=== PATIENT | female | born 1930 | race Caucasian/White ===

== ENCOUNTER 2017-09-15 16:55 | Inpatient (IN) | payer OTHER, MEDICAID ==
[~2017-09-15] VITALS: Ht 149.9 cm; Wt 44.5 kg
[~2017-09-15 16:55] MED LIST: ACETAMINOPHEN650 M5 PO; BACTRIM DS TAB1 EACH PO; CALCIUM 500 +1 EAC5 PO; CEFPODOXIME PR200 M1 PO; CHLORTHALIDONE25 MG PO; CIPRO250 M2 PO; COLACE100 MG PO; COREG3.125 MG PO; ENAL0; EXCEDRIN CAPLE1 EACH PO; HYDRALAZINE 10M10 MG PO; MULTIVITAMINS PO; NORVASC5 MG PO; PERCOCET 5-3251 EACH PO; PHENAZOPYRIDIN200 M2 PO; PYRIDIUM200 MG PO; SIMVASTATIN20 MG PO; TRAMADOL 50 MG50 MG PO; VASOTEC20 MG PO; ZOCOR40 MG PO; ZOFRAN4 MG PO
[2017-09-15] MEDS ORDERED: BACID CAPLET1 EACH PO (17:03)
[2017-09-15] MEDS ORDERED: VITAMINC500 PO (17:03)
[2017-09-15] MEDS ORDERED: CALMOSEPTINE O3.5 GM TOP (17:04)
[2017-09-15] MEDS ORDERED: CEFPODOXIME PR200 M1 PO (17:04)
[2017-09-15] MEDS ORDERED: COZAAR 25 MG TA25 M2 PO (17:04)
[2017-09-15] MEDS ORDERED: ENSURE ACTIVE237 ML PO (17:05)
[2017-09-15] MEDS ORDERED: DITROPAN XL5 M1 PO (17:05)
[2017-09-15] MEDS ORDERED: FLORASTOR250 MG PO (17:06)
[2017-09-15] MEDS ORDERED: HIPREX1 GM PO (17:06)
[2017-09-15] MEDS ORDERED: PRILOSEC 20 MG20 MG PO (17:06)
[2017-09-15] MEDS ORDERED: SENNA8.6 MG PO (17:06)
[2017-09-15] MEDS ORDERED: ORAZINC220 MG PO (17:07)
[2017-09-15 17:54] LABS: HEMATOCRIT 39.7 % (37.0-47.0); HEMOGLOBIN 13.1 gm/dL (12.0-15.0); MCH 27.9 pg (26.0-34.0); MCV 84.6 fL (80.0-100.0); MPV 8.7 fl. (7.2-11.1); NUCLEATED RBCS 0 /100WBC; PLATELET COUNT* 311 thou/uL (150-400); RBC 4.69 mil/uL (4.20-5.00); RDW-CV 14.1 % (10.5-14.5); WBC 20.3 thou/uL (4.0-11.0)
[2017-09-15 18:02] LABS: CALCIUM 8.3 mg/dL (8.5-10.1); CREATININE 2.5 mg/dL (0.6-1.3); POTASSIUM 3.5 mmol/L (3.5-5.1)
[2017-09-15 18:03] LABS: ALBUMIN 2.5 g/dL (3.4-5.0); MAGNESIUM 3.1 mg/dL (1.8-2.4); TOTAL BILIRUBIN 0.3 mg/dL (<0.1-1.0)
[2017-09-15 19:25] LABS: ABSOLUTE MONOCYTES 0.2 thou/uL (0.0-1.2); ABSOLUTE NEUTROPHILS 18.1 thou/uL (1.6-8.1)
[2017-09-15 19:26] LABS: PLATELET ESTIMATE ADEQUATE
[2017-09-15 20:27] VITALS: BP 123/72
[2017-09-15 21:30] VITALS: BP 146/76
[2017-09-15] MEDS ORDERED: DAILY MULTIPLE1 EACH PO (21:37)
[2017-09-16 04:52] LABS: CALCIUM 8.6 mg/dL (8.5-10.1); CREATININE 1.9 mg/dL (0.6-1.3); POTASSIUM 3.3 mmol/L (3.5-5.1)
[2017-09-16 04:54] LABS: HEMOGLOBIN 11.5 gm/dL (12.0-15.0); MCH 27.9 pg (26.0-34.0); MCHC 32.8 g/dL (28.0-37.0); MPV 8.8 fl. (7.2-11.1); RBC 4.12 mil/uL (4.20-5.00); RDW-CV 14.2 % (10.5-14.5)
[2017-09-16 04:55] LABS: ALBUMIN 1.9 g/dL (3.4-5.0); MAGNESIUM 2.8 mg/dL (1.8-2.4); TOTAL BILIRUBIN 0.3 mg/dL (<0.1-1.0); TOTAL PROTEIN 5.4 g/dL (6.4-8.2)
--- NOTE | 2017-09-16 05:22 | NUR ---
ASSESSMENT COMPLETE. PT ADMITTED WITH HYPERMAG WITH RENAL FAILURE. PT GIVEN CALCIUM GLUCONATE IN ED, ROCEPHIN FOR UTI. UROLOGY WAS CONSULTED FOR SUPRAPUBIC CATH LEAKING. CATH REPLACED TONIGHT AND STILL LEAKING AT THIS TIME. PT INCONT OF STOOL DURING THE NIGHT. PT HAS IV FLUIDS INFUSING. PT IS ALERT AND ORIENTED X4. PT DENIES PAIN. PT DENIES N/V. PT TAKES MEDS ONE AT A TIME WITH WATER. PT HAS WOUNDS TO SACRUM, PICS TAKEN AND IN CHART. PT IS Q2 TURN. SEE ASSESSMENT AND VITALS FOR OTHER DETAILS. CALL LIGHT WITHIN REACH, WILL CONTINUE PLAN OF CARE
[2017-09-16 08:15] VITALS: BP 108/57
[2017-09-16 10:01] LABS: URINE BILIRUBIN NEGATIVE (Negative); URINE BLOOD 3+ (Negative); URINE CLARITY CLEAR; URINE COLOR YELLOW; URINE GLUCOSE-RANDOM NEGATIVE (Negative); URINE KETONES NEGATIVE (Negative); URINE LEUKOCYTES-REFLEX NEGATIVE (Negative); URINE NITRITE-REFLEX NEGATIVE (Negative); URINE PROTEIN NEGATIVE (Negative); URINE UROBILINOGEN 0.2 E.U./dl (0.2-1.0)
--- NOTE | 2017-09-16 10:04 | EKG ---
[place] [address] ELECTROCARDIOGRAM REPORT Name: NORIS GRAJEDA I Room: [address] ADM IN .R.#: [id number] Admission: 09/15/17 Attend Phys: Xavier Baker MD Discharge: Date of : [birth year] Report #: [id number] THIS REPORT FOR: //name// [facility] ED Test Date: 2017-09-15 Test Time: 17:34:55 Pat Name: NORIS GRAJEDA Department: Room: [facility] Gender: F Sped Teacher: [employer] : 1930 Requested By: Cathy Franco Order Number: [id number] MD: Jacob Rosario Measurements Intervals [place] Rate: 91 P: -39 [place]: 176 QRS: -60 QRSD: 144 T: 107 QT: 400 QTc: 493 Interpretive Statements Sinus tachycardia Supraventricular bigeminy left axis Left bundle branch block Artifact in lead(s) I,II,III,aVR,aVF Compared to ECG 10/27/2014 15:17:42 Left bundle-branch block now present Sinus rhythm no longer present Electronically Signed On 09-16-2017 10:04:19 CDT by Jacob Rosario [email or web address] <ELECTRONICALLY SIGNED> By: Jacob Rosario MD, FAC 09/16/17 1004 1734 1734 Jacob Rosario MD, [facility] /EPI
[2017-09-16 10:07] LABS: URINE POTASSIUM-RANDOM 9.1 mmol/L
[2017-09-16 10:16] LABS: BACTERIA-REFLEX 1-9 Few /HPF (None Seen); CASTS None Seen /LPF (None Seen); CRYSTALS None Seen /LPF (None Seen); MUCUS 0-3 Light strn/LPF (None Seen); SQUAMOUS 4-10 Moderate /LPF (0-3); URINE RBC 3-10 Few /HPF (0-2); URINE WBC-REFLEX 0-5 Rare /HPF (0-5)
--- NOTE | 2017-09-16 13:24 | NUR ---
MET BRIEFLY WITH PT AND SPOKE WITH SON/KENTON OVER THE PHONE. PT IS LTC RESIDENT AT [facility]. PLAN IS FOR HER TO RETURN THERE [place]. CALL TO [facility], THEY WILL ACCEPT PT BACK [place]. ANSWERED KENTON'S QUESTIONS AND UPDATED HIM ON POC. WILL FOLLOW
[2017-09-16 16:11] VITALS: BP 115/59
--- NOTE | 2017-09-16 18:16 | NUR ---
PATIENT RESTING IN BED. PATIENT WAS UP TO CHAIR THIS AFTERNOON WITH MAX ASSIST. PATIENT HAS BEEN REPOSITIONED WHILE IN BED. PATIENT DENIES ANY PAIN. PATIENT HAS SUPRAPUBIC CATHETER WHICH IS STILL LEAKING A LITTLE, LEVSIN GIVEN. PATIENT HAD KIDNEY ULTRASOUND THIS AFTERNOON WITHOUT INCIDENT. PATIENT DENIES ANY NEEDS AT THIS TIME. CALL LIGHT WITHIN REACH. WILL CONTINUE TO MONITOR.
[2017-09-16 23:27] VITALS: BP 118/60
[2017-09-17 04:41] LABS: HEMATOCRIT 34.6 % (37.0-47.0); HEMOGLOBIN 11.3 gm/dL (12.0-15.0); MCH 27.9 pg (26.0-34.0); MCHC 32.7 g/dL (28.0-37.0); MCV 85.1 fL (80.0-100.0); MPV 8.6 fl. (7.2-11.1); RBC 4.06 mil/uL (4.20-5.00); RDW-CV 13.8 % (10.5-14.5); WBC 13.6 thou/uL (4.0-11.0)
[2017-09-17 04:50] LABS: CALCIUM 8.3 mg/dL (8.5-10.1); CREATININE 1.3 mg/dL (0.6-1.3); MAGNESIUM 2.3 mg/dL (1.8-2.4); POTASSIUM 3.2 mmol/L (3.5-5.1)
--- NOTE | 2017-09-17 05:08 | NUR ---
ASSESSMENT COMPLETE. PT SLEPT PART OF THE NIGHT. PT IS ALERT AND ORIENTED X4. PT DENIES PAIN. PT IS ON ROOM AIR WITH [place] SATS, DENIES SOA. PT DID NOT HAVE AND BM DURING THE NIGHT, NEED SAMPLE FOR CDIFF. SUPRAPUBIC CATH LEAKING A LITTLE BIT DURING THE NIGHT, LESS THAN THURSDAY NIGHT. PT HAS IV IN RIGHT HAND, SALINE LOCKED. PT Q2 TURN FOR SKIN INTEGRITY. PT HAS NO OTHER CONCERNS AT THIS TIME. SEE ASSESSMENT AND VITALS FOR OTHER DETAILS. CALL LIGHT WITHIN REACH, WILL CONTINUE PLAN OF CARE
[2017-09-17 08:45] VITALS: BP 111/60
--- NOTE | 2017-09-17 12:22 | NUR ---
WOUND NURSE: PATIENT SEEN TO ADDRESS SUPERFICIAL BREAKDOWN ON BILATERAL BUTTOCKS. AFFECTED AREAS PRESENT RUPTURED BULLAE WITH PEELING SKIN. PARTIAL THICKNESS TISSUE LOSS AND SCANT SEROUS DRAINAGE AT THIS TIME. PLAN IS TO CLEANSE WITH SOAP AND WATER, THEN APPLY EXUDERM TO EACH LESION AND SECURE IN PLACE USING SURESITE TRANSPARENT DRESSING. STAFF NURSE MELL INFORMED AND INSTRUCTED.
[2017-09-17 16:19] VITALS: BP 115/69
[2017-09-17 18:22] LABS: ABSOLUTE BASOPHILS 0.1 thou/uL (0.0-0.2); ABSOLUTE EOSINOPHILS 0.1 thou/uL (0.0-0.7); ABSOLUTE LYMPHOCYTES 1.8 thou/uL (0.8-5.3); ABSOLUTE MONOCYTES 0.5 thou/uL (0.0-1.2); ABSOLUTE NEUTROPHILS 12.5 thou/uL (1.6-8.1); BASOPHILS 0.4 %; EOSINOPHILS 0.7 %; HEMATOCRIT 36.2 % (37.0-47.0); LYMPHOCYTES 11.8 %; MCH 28.1 pg (26.0-34.0); MONOCYTES 3.5 %; MPV 8.1 fl. (7.2-11.1); NUCLEATED RBCS 0 /100WBC; PLATELET COUNT* 349 thou/uL (150-400); POLYS 83.6 %; RBC 4.26 mil/uL (4.20-5.00); RDW-CV 14.1 % (10.5-14.5)
--- NOTE | 2017-09-17 18:22 | NUR ---
PATIENT RESTING IN BED. PATIENT HAS BREAKDOWN TO BILATERAL BUTTOCKS, DRESSED PER WOUND CARE INSTRUCTION. PATIENT DENIES ANY PAIN. PATIENT'S SUBRAPUBIC CATHETER STILL LEAKING BUT HAS SLOWED. PATIENT IS POSITIVE FOR CDIFF, DR ROONEY NOTIFIED AND ORDERS RECIEVED. PATIENT HAS BEEN INCONTINENT OF BOWELS MULTIPLE TIMES TODAY. PATIENT REPOSITIONED WHILE IN BED, FEET ELEVATED ON PILLOWS. PATIENT DENIES ANY NEEDS AT THIS TIME. CALL LIGHT WITHIN REACH. WILL CONTINUE TO MONITOR.
[2017-09-17 20:13] LABS: URINE BILIRUBIN NEGATIVE (Negative); URINE BLOOD 2+ (Negative); URINE CLARITY CLEAR; URINE COLOR STRAW; URINE GLUCOSE-RANDOM NEGATIVE (Negative); URINE KETONES NEGATIVE (Negative); URINE LEUKOCYTES-REFLEX TRACE (Negative); URINE NITRITE-REFLEX NEGATIVE (Negative); URINE PROTEIN TRACE (Negative); URINE UROBILINOGEN 0.2 E.U./dl (0.2-1.0)
[2017-09-17 20:24] LABS: SQUAMOUS 4-10 Moderate /LPF (0-3)
[2017-09-17 20:25] LABS: BACTERIA-REFLEX 1-9 Few /HPF (None Seen); CRYSTALS None Seen /LPF (None Seen); HYALINE CASTS 0-3 Few /LPF (None Seen); MUCUS 0-3 Light strn/LPF (None Seen); URINE RBC 3-10 Few /HPF (0-2); URINE WBC-REFLEX 0-5 Rare /HPF (0-5)
[2017-09-17 20:30] VITALS: BP 119/64
[2017-09-18 04:38] LABS: HEMATOCRIT 35.2 % (37.0-47.0); HEMOGLOBIN 11.4 gm/dL (12.0-15.0); MCH 27.7 pg (26.0-34.0); MCHC 32.4 g/dL (28.0-37.0); MCV 85.5 fL (80.0-100.0); MPV 8.6 fl. (7.2-11.1); RBC 4.12 mil/uL (4.20-5.00); RDW-CV 14.2 % (10.5-14.5)
--- NOTE | 2017-09-18 04:53 | NUR ---
PT UP MOST OF THE EVENING, TURNED FREQUENTLY PER PATIENT REQUEST, SEVERAL INCONTINENT STOOLS THIS SHIFT, IV ANTIBIOTIC GIVEN, SUPRAPUBIC CATH, PRN SLEEPING MEDICATIONS GIVEN AND SLEPT LATER IN THE NIGHT, CALL LIGHT IN REACH, BED ALARM ON FOR SAFETY, WILL CONTINUE TO MONITOR
[2017-09-18 04:57] LABS: CALCIUM 8.3 mg/dL (8.5-10.1); CREATININE 1.2 mg/dL (0.6-1.3); POTASSIUM 5.2 mmol/L (3.5-5.1)
[2017-09-18 08:50] VITALS: BP 116/71
--- NOTE | 2017-09-18 10:41 | CON ---
[address] [address] CONSULTATION Name: NORIS GRAJEDA I Room: [address] IN [facility]#: [id number] Admission: 09/15/17 Attend Phys: Xavier Baker MD Discharge: Date of : [birth year] Report #: [id number] THIS REPORT FOR: //name// CC: Xavier Hamilton DATE OF SERVICE: 09/15/2017 INFECTIOUS DISEASE CONSULTATION REASON FOR EVALUATION: The patient with C. diff colitis. HISTORY OF PRESENT ILLNESS: Chart reviewed, the patient examined This is an 87-year-old with some degree of dementia, who was admitted from the [facility] due to markedly abnormal labs and was found to have renal failure with a BUN approaching 200 and there is a concern about urinary tract infection as well. During the evaluation, she was noted to have some diarrhea. She was confirmed to have C. diff positive stool and started on oral vancomycin. Flagyl was added as well. Urinalysis microscopically, however, was fairly unremarkable. Labs have improved. She denies significant pain at this point. She does admit to being cold, perseverates about that. Denies dyspnea. ALLERGIES: LISTED OXYCODONE, SULFA, CODEINE, PIROXICAM, NITROFURANTOIN AND AZITHROMYCIN. CURRENT MEDICATIONS: Include metronidazole, vancomycin, hyoscyamine, promethazine and ondansetron. PAST MEDICAL HISTORY: Hypertension, high cholesterol, reflux, chronic renal disease, atrial fibrillation, dementia, previous nephrectomy for renal cancer in 2000, history of urinary tract infections and C. diff with fecal transplant. SOCIAL HISTORY: Nonsmoker, no ethanol. FAMILY HISTORY: Noncontributory. REVIEW OF SYSTEMS: As above. Denies significant abdominal-related pain. She is not able to give details about diarrhea. Denies pulmonary-related complaints. PHYSICAL EXAMINATION: GENERAL: She appears chronically ill, undernourished. She is pleasant, actually in mild distress. VITAL SIGNS: Temperature 97.8, pulse 87, respirations 15 and blood pressure 116/71. SKIN: Warm, [place] [address] CONSULTATION Name: NORIS GRAJEDA Hernandez Room: [address]#: [id number] Admission: 09/15/17 Attend Phys: Xavier Baker MD Discharge: Date of : [birth year] Report #: [id number] HEENT: Unremarkable. NECK: Supple. LUNGS: Diminished breath sounds, generally clear. HEART: Regular. I do not appreciate a murmur. ABDOMEN: Soft. There are no peritoneal signs. GENITOURINARY: Deferred. RECTAL: Deferred. LABORATORY DATA: Sodium 142, potassium 5.2, chloride 111, bicarbonate is 24, anion gap of 7, BUN and creatinine 56 and 1.2 and estimated GFR of 42, distinction from admission where BUN was 191, creatinine 2.5 and estimated GFR of 418. Initial CBC: White count elevated at 20.3, H and H 13.1 and 39.7 and platelets of 311,000. White count of 13.0, H and H 11.4 and 35.2 and platelets of 355,000. Lactic acid of 1.0; on repeat, it was 0.7. C. diff was positive. Urinalysis 0-5 white cells. Renal ultrasound, narrow right kidney with a cystic structure. ASSESSMENT AND PLAN: Clostridium difficile colitis. 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 Continue combination therapy. We will follow expectantly. Certainly renal failure plays some part due to prerenal azotemia in the setting of dehydration. She actually has responded fairly well given the severity of her illness. She has several poor prognostic indicators C. diff will be potentially severe. Thank you. We will follow. <ELECTRONICALLY SIGNED> By: Zac Jeter MD 09/18/17 1041 0952 [id number] Jeter MD /nt
--- NOTE | 2017-09-18 15:13 | NUR ---
Pt possibly to dc Thursday. ROJAS called and spoke with Keesha at [facility] who confirmed that they could accept pt back home even with CDif. Contact Keesha at [phone] when pt ready to dc to be able to arrange ride if dc is over the weekend.
[2017-09-18 16:00] VITALS: BP 116/63
--- NOTE | 2017-09-18 17:32 | NUR ---
PATIENT HAS BEEN ALERT MOST OF THE DAY NAPPING ON AND OFF. NO COMPLAINTS OF ANY PAIN TODAY. PATIENT IS INCONTINENT OF BOWEL AND HAS SUPRAPUBIC CATHETER IN PLACE DRAINING WELL. VITAL SIGNS HAVE BEEN STABLE ON ROOM AIR. TURNS HAVE BEEN DONE EVERY TWO HOURS. CALL LIGHT IS IN REACH, BED ALARM IS ON, WILL CONTINUE TO MONITOR.
[2017-09-18 20:00] VITALS: BP 123/67
[2017-09-19 04:24] LABS: HEMATOCRIT 33.1 % (37.0-47.0); MCH 28.9 pg (26.0-34.0); MCHC 33.2 g/dL (28.0-37.0); MPV 7.7 fl. (7.2-11.1); RBC 3.81 mil/uL (4.20-5.00); RDW-CV 14.4 % (10.5-14.5); WBC 10.2 thou/uL (4.0-11.0)
[2017-09-19 04:40] LABS: CREATININE 1.1 mg/dL (0.6-1.3); POTASSIUM 4.7 mmol/L (3.5-5.1)
--- NOTE | 2017-09-19 04:58 | NUR ---
PT UP MOST OF THE NIGHT, PRN SLEEPING MEDS GIVEN ON TWO OCCASIONS, CALLS OUT TO SIT UP IN BED, TO HAVE HEAD BACK DOWN, PATIENT KICKED OFF BOOT FROM LEFT FOOT TWICE AND ENCOURAGED TO KEEP IT ON. CALLS OUT FREQUENTLY. PT TURNED Q2HRS, IV ANTIBIOTIC GIVEN AT HS, SUPRAPUBIC CATHETER LEAKING URINE AROUND SITE, SON CALLED DURING THE NIGHT TO CHECK IN ON PATIENT. CALL LIGHT IN REACH, BED ALARM ON FOR SAFETY, WILL CONTINUE TO MONITOR
[2017-09-19 08:40] VITALS: BP 124/62
--- NOTE | 2017-09-19 12:12 | NUR ---
Following for d/c planning needs. Received order from physician to arrange d/c back to [facility] term [facility]. Spoke with son Espinoza and he is in agreement with plans. Spoke with Keesha at [facility] and faxed orders to [address] [place] [address]. Chart copied. [employer] will provide w/c van transportation at 1330 and bill [facility]. No other needs identified. [facility] [phone]; fax [phone] [employer] w/c van [phone]
[2017-09-19 13:14] VITALS: BP 124/62
[2017-09-19] MEDS ORDERED: VANCOCIN 125 M125 M1 PO (13:14)
--- NOTE | 2017-09-19 14:06 | NUR ---
REPORT CALLED TO MICHELA AT [facility] AND SPOKE WITH MICHELA. PATIENT DISCHARGED AT 1340 VIA WHEELCHAIR VAN WITH ALL BELONGINGS.
== END 2017-09-19 13:40 | DRG 91 ==
LOC: M.ERS 16:55 → M.3W 18:51 → M.TBA-ER 18:51 → M.3W 20:13
PROVIDERS: Emergency Medicine; Internal Medicine; Nurse Practitioner Family; Personal Emergency Response Attendant; ADMIT Internal Medicine
DX: G92 Toxic encephalopathy (principal); N17.0 Acute kidney failure with tubular necrosis; E43 Unspecified severe protein-calorie malnutrition; N39.0 Urinary tract infection, site not specified; A04.72 Enterocolitis due to Clostridium difficile, not specified as recurrent; E87.1 Hypo-osmolality and hyponatremia; I42.9 Cardiomyopathy, unspecified; Z68.1 Body mass index [BMI] 19.9 or less, adult; E78.00 Pure hypercholesterolemia, unspecified; K21.9 Gastro-esophageal reflux disease without esophagitis; I48.91 Unspecified atrial fibrillation; F03.90 Unspecified dementia, unspecified severity, without behavioral disturbance, psychotic disturbance, mood disturbance, and anxiety; N18.2 Chronic kidney disease, stage 2 (mild); L89.159 Pressure ulcer of sacral region, unspecified stage; E87.6 Hypokalemia; I12.9 Hypertensive chronic kidney disease with stage 1 through stage 4 chronic kidney disease, or unspecified chronic kidney disease; Z90.49 Acquired absence of other specified parts of digestive tract; Z90.5 Acquired absence of kidney; Z79.82 Long term (current) use of aspirin; Z79.899 Other long term (current) drug therapy; Z88.1 Allergy status to other antibiotic agents; Z88.5 Allergy status to narcotic agent; Z88.2 Allergy status to sulfonamides; Z85.528 Personal history of other malignant neoplasm of kidney; Z88.8 Allergy status to other drugs, medicaments and biological substances

== ENCOUNTER 2018-08-22 12:48 | Inpatient (IN) | payer OTHER, MEDICAID ==
[~2018-08-22] VITALS: Ht 157.5 cm; Wt 40.8 kg
--- NOTE | ~2018-08-22 | CON ---
[address] [address] CONSULTATION Name: NORIS GRAJEDA I Room: [address] IN .R.#: [id number] Admission: 08/22/18 Attend Phys: Ruby Sahni MD Discharge: 08/25/18 Date of : [birth year] Report #: [id number] THIS REPORT FOR: //name// CC: Dr. Alfonso Hamilton DICTATED BY: Barbara Carbajal [facility] DATE OF SERVICE: 08/25/2018 Please note at the time of this dictation, the patient was seen and physically examined by myself. REASON FOR CONSULTATION: Pancreatic mass. HISTORY OF PRESENT ILLNESS: This is an 88-year-old female who presented to the Emergency Room who was having decreased urine output yesterday. jail staff attempted to change her suprapubic catheter and was unsuccessful. She had increased respirations and she was complaining of some abdominal pain. Unable to obtain much of a history from the patient, most of it was retained from her chart secondary to her dementia and being on BiPAP. ALLERGIES: INCLUDE ZITHROMAX, CODEINE, NITROFURANTOIN, PIROXICAM, POLYETHYLENE GLYCOL, SULFA, AND OXYCODONE. MEDICATIONS: Zofran, milk of mag, Colace, Benadryl, Keflex, Florastor, Gas-X, Lasix, Hiprex, oxybutynin, zinc, Bacid caplet, Ultram, vitamin C, Ditropan, Prilosec and multivitamin. PAST MEDICAL HISTORY: Significant for frequent UTIs, hypertension, high cholesterol, GERD, history of remote C. diff, dementia, dermatitis, AFib, chronic kidney disease. PAST SURGICAL HISTORY: Left kidney removed in 2000, renal cancer, appendectomy, tonsillectomy. FAMILY HISTORY: Noncontributory. SOCIAL HISTORY: The patient is a resident in an extended care facility. REVIEW OF SYSTEMS: Twelve-point review of systems is essentially negative except what is mentioned in the HPI. PHYSICAL EXAMINATION: VITAL SIGNS: Temperature 36, pulse 56, respirations 22, blood pressure 109/58[place] [address] CONSULTATION Name: NORIS GRAJEDA I Room: [address]#: [id number] Admission: 08/22/18 Attend Phys: Ruby Sahni MD Discharge: 08/25/18 Date of : [birth year] Report #: [id number] HEART: Irregular rate and rhythm. LUNGS: Diminished throughout. Currently, on BiPAP. ABDOMEN: Soft, nondistended, positive bowel sounds, some slight tenderness noted, generalized and a suprapubic catheter noted. LABORATORY DATA: Hemoglobin 9.1, hematocrit 27.7, white count is 8, platelets 220. GFR is 42. PT is 10.7, INR is 1. CT of the abdomen and pelvis showed a 2 cm pancreatic mass as well as a 2.1 cm of the right kidney. IMPRESSION: 1. Abdominal pain. 2. Pancreatic mass. 3. Renal mass. 4. Anemia. 5. Respiratory distress, currently on BiPAP. 6. Dementia. 7. History of Clostridium difficile. PLAN: 1. No inpatient recommendations to be made at this time. 2. If family is wanting a full workup, then we will discuss EUS with fine needle aspiration as an outpatient. 3. We will await family's decision. They are in the process of talking. She is currently a DNR. We will be on standby. Thank you for allowing us to participate in this patient's care. Please do not hesitate to call with any questions in regard to this consult. REFERRING PHYSICIAN: Dr. Ruby Sahni. I have seen and examined the patient and agree with the plan that has been outlined by our nurse practitioner, Barbara Carbajal. Given the patient's multiple issues including respiratory failure, probable renal cancer, probable pancreatic cancer and dementia, I would not pursue any further testing. Instead, I would recommend palliative or hospice care for this poor frail lady. There is no point in putting her through any testing at her age and her underlying condition. We will not proceed with any testing from our office. We will sign off at this time. By: 1113 [id number] Ornelas DO /nt
[~2018-08-22 12:48] MED LIST changes: +BACID CAPLET1 EACH PO; +CALMOSEPTINE O3.5 GM TOP; +COZAAR 25 MG TA25 M2 PO; +DAILY MULTIPLE1 EACH PO; +DITROPAN XL5 M1 PO; +ENSURE ACTIVE237 ML PO; +FLORASTOR250 MG PO; +HIPREX1 GM PO; +ORAZINC220 MG PO; +PRILOSEC 20 MG20 MG PO; +SENNA8.6 MG PO; +VANCOCIN 125 M125 M1 PO; +VITAMINC500 PO
[2018-08-22 12:54] VITALS: BP 134/77
[2018-08-22] MEDS ORDERED: MILK OF MA400 MG/5 M PO (13:01)
[2018-08-22] MEDS ORDERED: COLACE100 MG PO (13:01)
[2018-08-22] MEDS ORDERED: ONDANSETRON HCL4 M2 PO (13:01)
[2018-08-22] MEDS ORDERED: BENADRYL25 MG PO (13:01)
[2018-08-22] MEDS ORDERED: KEFLEX500 M1 PO (13:02)
[2018-08-22] MEDS ORDERED: GAS-X125 MG PO (13:02)
[2018-08-22] MEDS ORDERED: FLORASTOR250 MG PO (13:02)
[2018-08-22] MEDS ORDERED: LASIX 40 MG TAB40 M2 PO (13:03)
[2018-08-22] MEDS ORDERED: HIPREX1 GM PO (13:03)
[2018-08-22] MEDS ORDERED: OXYBUTYNIN 5 MG5 M2 PO (13:04)
[2018-08-22] MEDS ORDERED: ZINC SULFATE 2220 M1 PO (13:04)
[2018-08-22 13:44] LABS: HEMATOCRIT 32.9 % (37.0-47.0); HEMOGLOBIN 11.1 gm/dL (12.0-15.0); MCH 28.9 pg (26.0-34.0); MCHC 33.7 g/dL (28.0-37.0); MCV 85.9 fL (80.0-100.0); MPV 7.1 fl. (7.2-11.1); NUCLEATED RBCS 0 /100WBC; PLATELET COUNT* 258 thou/uL (150-400); RBC 3.82 mil/uL (4.20-5.00); WBC 8.1 thou/uL (4.0-11.0)
[2018-08-22 13:52] LABS: APTT 32.3 Seconds (25.0-31.3); PROTIME 10.7 Seconds (9.20-11.50)
[2018-08-22 14:01] LABS: URINE BILIRUBIN NEGATIVE (Negative); URINE BLOOD 3+ (Negative); URINE CLARITY CLEAR; URINE COLOR YELLOW; URINE GLUCOSE-RANDOM NEGATIVE (Negative); URINE KETONES NEGATIVE (Negative); URINE NITRITE-REFLEX NEGATIVE (Negative); URINE PROTEIN 2+ (Negative); URINE UROBILINOGEN 0.2 E.U./dl (0.2-1.0)
[2018-08-22 14:02] LABS: URINE LEUKOCYTES-REFLEX 2+ (Negative)
[2018-08-22 14:02] LABS: ANION GAP 7 mmol/L (7-16); BUN 15 mg/dL (7-18); CALCIUM 8.9 mg/dL (8.5-10.1); CHLORIDE 95 mmol/L (98-107); CO2 28 mmol/L (21-32); CREATININE 0.8 mg/dL (0.6-1.3); GLUCOSE 117 mg/dL (70-99); POTASSIUM 3.9 mmol/L (3.5-5.1); SODIUM 130 mmol/L (136-145); TROPONIN-I LEVEL <0.06 ng/mL (<0.06)
[2018-08-22 14:07] LABS: ALKALINE PHOSPHATASE 64 U/L (46-116); NT-PRO BRAIN NAT PEPTIDE 3517 pg/mL (<300); SGOT 43 U/L (15-37); SGPT 31 U/L (30-65); TOTAL BILIRUBIN 0.4 mg/dL (<0.1-1.0); TOTAL PROTEIN 7.3 g/dL (6.4-8.2)
[2018-08-22 14:12] LABS: CASTS None Seen /LPF (None Seen); CRYSTALS None Seen /LPF (None Seen); MUCUS 0-3 Light strn/LPF (None Seen); SQUAMOUS 0-3 Few /LPF (0-3); URINE RBC 3-10 Few /HPF (0-2); URINE WBC-REFLEX 6-15 Few /HPF (0-5)
[2018-08-22 14:58] LABS: ABSOLUTE BASOPHILS 0.1 thou/uL (0.0-0.2); ABSOLUTE EOSINOPHILS 0.2 thou/uL (0.0-0.7); ABSOLUTE LYMPHOCYTES 0.6 thou/uL (0.8-5.3); ABSOLUTE MONOCYTES 0.2 thou/uL (0.0-1.2); ABSOLUTE NEUTROPHILS 6.9 thou/uL (1.6-8.1); PLATELET ESTIMATE ADEQUATE
[2018-08-22 18:30] VITALS: BP 138/69
[2018-08-22 18:35] VITALS: BP 138/90
[2018-08-22 20:00] VITALS: BP 162/98
[2018-08-23] VITALS: BP 115/59
[2018-08-23 04:00] VITALS: BP 142/80
[2018-08-23 06:10] LABS: ALBUMIN 2.4 g/dL (3.4-5.0); CALCIUM 8.1 mg/dL (8.5-10.1); CREATININE 0.6 mg/dL (0.6-1.3); MAGNESIUM 1.5 mg/dL (1.8-2.4); POTASSIUM 3.6 mmol/L (3.5-5.1); TOTAL BILIRUBIN 0.4 mg/dL (<0.1-1.0); TOTAL PROTEIN 5.3 g/dL (6.4-8.2)
[2018-08-23 09:02] VITALS: BP 123/62
--- NOTE | 2018-08-23 09:35 | EKG ---
[place] [address] ELECTROCARDIOGRAM REPORT Name: SUJIT GRAJEDAMA Hernandez Room: [address] ADM IN M.R.#: [id number] Admission: 08/22/18 Attend Phys: Ruby Sahni MD Discharge: Date of : [birth year] Report #: [id number] THIS REPORT FOR: //name// [facility] ED Test Date: 2018-08-22 Test Time: 13:41:42 Pat Name: NORIS GRAJEDA Department: Room: [facility] Gender: F Event Sales Assistant: : 1930 Requested By: Qasim Espinoza Order Number: [id number] MD: Jacob Rosario Measurements Intervals [place] Rate: 106 P: -66 AR: 171 QRS: 41 QRSD: 93 T: 69 QT: 359 QTc: 477 Interpretive Statements Sinus or ectopic atrial tachycardia Atrial premature complexes in couplets Probable left ventricular hypertrophy Anterior ST elevation, probably due to LVH Compared to ECG 09/15/2017 17:34:55 Left ventricular hypertrophy now present ST (T wave) deviation now present Left ventricular hypertrophy now present Sinus tachycardia now present Electronically Signed On 08-23-2018 9:35:10 FOOD SERVICE UTILITY WORKER by Jacob Rosario [email or web address] <ELECTRONICALLY SIGNED> By: Jacob Rosario MD, FAC 08/23/18 0935 1341 1341 Jcaob Rosario MD, [facility] /EPI
--- NOTE | 2018-08-23 09:41 | EKG ---
[place] [address] ELECTROCARDIOGRAM REPORT Name: JONASDAPHNESUJIT YOSTJAMIE Ng Room: [address] ADM IN M.R.#: [id number] Admission: 08/22/18 Attend Phys: Ruby Sahni MD Discharge: Date of : [birth year] Report #: [id number] THIS REPORT FOR: //name// [facility] Test Date: 2018-08-22 Test Time: 20:14:18 Pat Name: NORIS GRAJEDA Department: Room: [address] Gender: F Paraoptometric: valerie : 1930 Requested By: Ruby Sahni Order Number: [id number] Reading MD: Jacob Rosario Measurements Intervals [place] Rate: 142 P: [place]: QRS: -61 QRSD: 136 T: 103 QT: 343 QTc: 527 Interpretive Statements Wide-QRS tachycardia Ventricular premature complex Left bundle branch block Baseline wander in lead(s) V5 Compared to ECG 08/22/2018 13:41:42 Ventricular premature complex(es) now present Left ventricular hypertrophy no longer present Electronically Signed On 08-23-2018 9:41:21 TRIM DIE MAKER by Jacob Rosario [email or web address] <ELECTRONICALLY SIGNED> By: Jacob Rosario MD, FAC 08/23/18 0941 13 13 Jaocb Rosario MD, FAC /EPI
--- NOTE | 2018-08-23 09:43 | EKG ---
[place] [address] ELECTROCARDIOGRAM REPORT Name: NORIS GRAJEDA I Room: [address] ADM IN .R.#: [id number] Admission: 08/22/18 Attend Phys: Ruby Sahni MD Discharge: Date of : [birth year] Report #: [id number] THIS REPORT FOR: //name// [facility] Test Date: 2018-08-22 Test Time: 20:15:11 Pat Name: NORIS GRAJEDA Department: Room: [address] Gender: F Coil Repair Technician: valerie : 1930 Requested By: Ruby Sahni Order Number: [id number] Reading MD: Jacob Rosario Measurements Intervals [place] Rate: 134 P: MD: QRS: -58 QRSD: 116 T: 114 QT: 328 QTc: 490 Interpretive Statements Atrial fibrillation Ventricular premature complex Left anterior fascicular block Anterior infarct, old Compared to ECG 08/22/2018 13:41:42 no change Electronically Signed On 08-23-2018 9:42:51 TRANSFER STATION OPERATOR by Jacob Rosario [email or web address] <ELECTRONICALLY SIGNED> By: Jacob Rosario MD, FAC 08/23/18 0942 14 14 Jacob Rosario MD, FAC /EPI
--- NOTE | 2018-08-23 09:44 | EKG ---
[place] [address] ELECTROCARDIOGRAM REPORT Name: NORIS GRAJEDA I Room: [address] ADM IN .R.#: [id number] Admission: 08/22/18 Attend Phys: Ruby Sahni MD Discharge: Date of : [birth year] Report #: [id number] THIS REPORT FOR: //name// [facility] Test Date: 2018-08-22 Test Time: 20:16:25 Pat Name: NORIS GRAJEDA Department: Room: [address] Gender: F Nurses' Association Counselor: valerie : 1930 Requested By: Ruby Sahni Order Number: [id number] Reading MD: Jacob Rosario Measurements Intervals [place] Rate: 127 P: GA: QRS: -59 QRSD: 118 T: 106 QT: 324 QTc: 472 Interpretive Statements Atrial fibrillation Left anterior fascicular block Anterior infarct, old Compared to ECG 08/22/2018 13:41:42 no change Electronically Signed On 08-23-2018 9:43:56 LIEUTENANT FIRE FIGHTER by Jacob Rosario [email or web address] <ELECTRONICALLY SIGNED> By: Jacob Rosario MD, FAC 08/23/18 0943 15 15 Jacob Rosario MD, [facility] /EPI
--- NOTE | 2018-08-23 17:14 | 2DMMODE ---
[place] [address] 2 D/M-MODE ECHOCARDIOGRAM Name: BRENDAPRIYANKNORIS Room: [address] IN [facility]#: [id number] Admission: 08/22/18 Attend Phys: Ruby Sahni, Discharge: Date of : [birth year] Date of Service: 08/23/18 1713 Report #: [id number] THIS REPORT FOR: //name// APPROVED REPORT Study performed: 08/23/2018 15:15:58 EXAM: Comprehensive 2D, Doppler, and color-flow Echocardiogram Patient Location: In-Patient Room #: 229 Status: routine BSA: 1.24 HR: 60 bpm BP: 142/80 mmHg Rhythm: NSR Other Information Study Quality: Good Indications Congestive Heart Failure Sepsis 2D Dimensions IVSd: 8.68 (7-11mm) LVOT Diam: 19.70 (18-24mm) LVDd: 35.72 mm PWd: 8.28 (7-11mm) Ascending Ao: 30.33 (22-36mm) LVDs: 23.82 (25-40mm) Aortic Root: 27.12 mm Volumes Left Atrial Volume (Systole) LA ESV Index: 36.60 mL/m2 Aortic Valve AoV Peak Maikol.: 1.13 m/s AO Peak Gr.: 5.06 mmHg LVOT Max P.04 mmHg AO Mean Gr.: 2.65 mmHg LVOT Mean P.79 mmHg LVOT Max V: 0.71 m/s AO V2 VTI: 25.21 cm LVOT Mean V: 0.39 m/s DALILA (VTI): 1.99 cm2 LVOT V1 VTI: 16.50 cm Mitral Valve E/A Ratio: 1.17 MV Decel. Time: 194.76 [place] [address] 2 D/M-MODE ECHOCARDIOGRAM Name: NORIS GRAJEDA I Room: [address] IN [facility]#: [id number] Admission: 08/22/18 Attend Phys: Ruby Sahni, Discharge: Date of : [birth year] Date of Service: 08/23/18 1713 Report #: [id number] MV E Max Maikol.: 0.55 m/s MV PHT: 56.48 ms MVA (PHT): 3.90 cm2 TDI E/Lateral E': 6.88 E/Medial E': 9.17 Medial E' Maikol.: 0.06 m/s Lateral E' Maikol.: 0.08 m/s Pulmonary Valve PV Peak Maikol.: 0.67 m/s PV Peak Gr.: 1.79 mmHg Tricuspid Valve RAP Estimate: 10.00 mmHg TR Peak Gr.: 23.87 mmHg RVSP: 33.00 mmHg PA Pressure: 33.00 mmHg Left Ventricle The left ventricle is normal size. There is normal LV segmental wall motion. There is normal left ventricular wall thickness. Left ventricular systolic function is normal. LVEF is 55-60%. Transmitral Doppler flow pattern suggests impaired LV relaxation. Right Ventricle The right ventricle is normal size. The right ventricular systolic function is normal. Atria Left atrium is mildly dilated. Right atrium is mildly dilated. Aortic Valve Mild aortic valve sclerosis. Trace aortic regurgitation. There is no aortic valvular stenosis. Mitral Valve The mitral valve is normal in structure. Moderate mitral regurgitation. No evidence of mitral valve stenosis. Tricuspid Valve The tricuspid valve is normal in structure. Mild tricuspid regurgitation. No pulmonary hypertension. Pulmonic Valve The pulmonary valve is normal in structure. Mild [place] [address] 2 D/M-MODE ECHOCARDIOGRAM Name: NORIS GRAJEDA I Room: [address]#: [id number] Admission: 08/22/18 Attend Phys: Ruby Sahni, Discharge: Date of : [birth year] Date of Service: 08/23/18 1713 Report #: [id number] Great Vessels The aortic root is normal in size. IVC is dilated and collapses >50% with inspiration. Pericardium There is no pericardial effusion. <Conclusion> The left ventricle is normal size. There is normal left ventricular wall thickness. Left ventricular systolic function is normal. LVEF is 55-60%. Transmitral Doppler flow pattern suggests impaired LV relaxation. Left atrium is mildly dilated. Right atrium is mildly dilated. Mild aortic valve sclerosis. Trace aortic regurgitation. There is no aortic valvular stenosis. Moderate mitral regurgitation. Mild tricuspid regurgitation. No pulmonary hypertension. IVC is dilated and collapses >50% with inspiration. <ELECTRONICALLY SIGNED> By: Marko Larson MD, FACC 08/23/181712 12 12 Marko Larson MD, FACC /INF
[2018-08-23 21:01] VITALS: BP 119/60
[2018-08-24] VITALS: BP 113/57
[2018-08-24 04:00] VITALS: BP 130/69
[2018-08-24 05:46] LABS: HEMATOCRIT 27.5 % (37.0-47.0); HEMOGLOBIN 9.2 gm/dL (12.0-15.0); MCHC 33.5 g/dL (28.0-37.0); MCV 86.5 fL (80.0-100.0); MPV 7.3 fl. (7.2-11.1); RBC 3.18 mil/uL (4.20-5.00); RDW-CV 12.9 % (10.5-14.5); WBC 7.2 thou/uL (4.0-11.0)
[2018-08-24 05:56] LABS: CALCIUM 8.5 mg/dL (8.5-10.1); CREATININE 0.8 mg/dL (0.6-1.3); MAGNESIUM 2.2 mg/dL (1.8-2.4); POTASSIUM 3.7 mmol/L (3.5-5.1)
[2018-08-24 07:59] VITALS: BP 150/79
--- NOTE | 2018-08-24 09:44 | EKG ---
[place] [address] ELECTROCARDIOGRAM REPORT Name: JONASDAPHENPRIYANKNORIS I Room: [address] ADM IN M.R.#: [id number] Admission: 08/22/18 Attend Phys: Ruby Sahni MD Discharge: Date of : [birth year] Report #: [id number] THIS REPORT FOR: //name// [facility] Test Date: 2018-08-24 Test Time: 08:11:06 Pat Name: NORIS GRAJEDA Department: Room: [address] Gender: F Expense Clerk: : 1930 Requested By: Jacob Rosario Order Number: [id number] MD: Jacob Rosario Measurements Intervals [place] Rate: 66 P: 81 [place]: 206 QRS: 65 QRSD: 89 T: 66 QT: 454 QTc: 476 Interpretive Statements Sinus rhythm Atrial premature complex Borderline low voltage, extremity leads Anteroseptal infarct, old Baseline wander in lead(s) II,aVF Compared to ECG 08/22/2018 20:16:25 Atrial fibrillation no longer present Left anterior fascicular block no longer present Myocardial infarct finding still present Electronically Signed On 08-24-2018 9:44:15 RESIDENT DIRECTOR by Jacob Rosario [email or web address] <ELECTRONICALLY SIGNED> By: Jacob Rosario MD, [facility] 08/24/1844 0 0 Jacob Rosario MD, [facility] /EPI
[2018-08-24 12:30] VITALS: BP 112/54
[2018-08-24 15:19] LABS: PO2 95.1 mmHg (75.0-100.0)
[2018-08-24 15:24] LABS: PCO2 122.2 mmHg (35.0-45.0)
--- NOTE | 2018-08-24 16:57 | CON ---
[address] [address] CONSULTATION Name: JONASDAPHNENORIS YOST Hernandez Room: [address] IN [facility]#: [id number] Admission: 08/22/18 Attend Phys: Ruby Sahni MD Discharge: Date of : [birth year] Report #: [id number] THIS REPORT FOR: //name// CC: [facility] DATE OF SERVICE: 08/23/2018 CARDIOLOGY CONSULTATION HISTORY OF PRESENT ILLNESS: The patient is an 88-year-old white female who I was asked to see in the hospital today after she was noted to be tachycardic. The history is obtained from the records. There are no family members available. The patient is lying in bed. She does respond to questions, but her answers are basically yes and no. The patient has had several hospitalizations here at [facility]. She was admitted here in 2014 with urinary tract infection secondary to suprapubic catheter. She has a history of renal cell carcinoma with previous nephrectomy and she has chronic anemia. She was last admitted here in August 2017 with a urinary tract infection. She is transferred to retirement unit. The patient was brought to the Emergency Room yesterday with decreased urine output. She is a resident of a [facility]. She appeared short of breath. She had some lower abdominal pain. She is admitted. Last night, she went into tachycardia. Cardiology consultation was requested. PAST MEDICAL HISTORY: Significant for chronic kidney disease, hypertension. MEDICATIONS ON ADMISSION: Include omeprazole, oxybutynin. PHYSICAL EXAMINATION: GENERAL: Revealed an elderly frail appearing female, lying in bed. She appeared in no acute distress. VITAL SIGNS: Showed a blood pressure of 130/70, pulse is 80, she is afebrile. HEENT: She is anicteric. Conjunctivae are pale. Mucous membranes appear dry. NECK: Veins do not appear distended. CHEST: Clear to auscultation. CARDIAC: Regular rate and rhythm. ABDOMEN: Soft. EXTREMITIES: Had no edema. SKIN: Cool and dry. NEUROLOGIC: She is able to move all extremities. LABORATORY DATA: ECG on admission yesterday showed what appeared to represent a sinus rhythm, occasional PVC, septal Q-waves. Last night, the patient went into a narrow complex tachycardia at 130 beats per minute, suggestive of atrial fibrillation. She currently appears to be in a sinus rhythm. Her workup is she had a chest x-ray performed that showed normal heart size, [place] [address] CONSULTATION Name: NORIS GRAJEDA I Room: [address]#: [id number] Admission: 08/22/18 Attend Phys: Ruby Sahni MD Discharge: Date of : [birth year] Report #: [id number] martinez, calcified aortic arch. Her lab work is sodium 136, BUN 12, creatinine 0.6, albumin is 2.4. Troponin 0.06. TSH in 2015 is 1.73. White blood cell count 8.1, hemoglobin 11.1. IMPRESSION AND RECOMMENDATIONS: 1. Paroxysmal atrial fibrillation. I will check thyroid function studies and an echocardiogram. At this time, I recommend starting sotalol. The patient does not appear to be a very good candidate for anticoagulation. 2. History of renal cell carcinoma with indwelling suprapubic catheter. 3. Dementia. <ELECTRONICALLY SIGNED> By: Jacob Rosario MD, FACC 08/24/18 1657 1221 [id number] Rosario MD, FACC /nt
[2018-08-24 17:11] LABS: BE -1.9 mmol/L (-2 to +3); PO2 95.6 mmHg (75.0-100.0)
[2018-08-24 17:16] LABS: PCO2 74.3 mmHg (35.0-45.0); pH 7.183 (7.340-7.450)
[2018-08-24 17:23] VITALS: BP 124/104
[2018-08-24 21:04] VITALS: BP 128/63
[2018-08-25] VITALS (7 sets, daily range): BP systolic 96–121; BP diastolic 33–74
[2018-08-25 05:06] LABS: HEMATOCRIT 27.7 % (37.0-47.0); HEMOGLOBIN 9.1 gm/dL (12.0-15.0); MCH 28.8 pg (26.0-34.0); MCHC 32.8 g/dL (28.0-37.0); MCV 87.8 fL (80.0-100.0); RBC 3.16 mil/uL (4.20-5.00); RDW-CV 13.1 % (10.5-14.5)
[2018-08-25 05:14] LABS: CALCIUM 8.7 mg/dL (8.5-10.1); CREATININE 1.2 mg/dL (0.6-1.3); MAGNESIUM 2.2 mg/dL (1.8-2.4); POTASSIUM 4.1 mmol/L (3.5-5.1)
[2018-08-25 09:36] LABS: BE -0.1 mmol/L (-2 to +3); PO2 113.4 mmHg (75.0-100.0)
[2018-08-25 09:38] LABS: PCO2 62.1 mmHg (35.0-45.0); pH 7.265 (7.340-7.450)
--- NOTE | 2018-08-25 11:47 | EKG ---
[place] [address] ELECTROCARDIOGRAM REPORT Name: JONASDAPHNEPRIYANKNORIS Ng Room: [address] ADM IN .R.#: [id number] Admission: 08/22/18 Attend Phys: Ruby Sahni MD Discharge: Date of : [birth year] Report #: [id number] THIS REPORT FOR: //name// [facility] Test Date: 2018-08-25 Test Time: 09:38:39 Pat Name: NORIS GRAJEDA Department: Room: [address] Gender: F Fold Skiver: : 1930 Requested By: Jacob Rosario Order Number: [id number] Reading MD: Jacob Rosario Measurements Intervals [place] Rate: 56 P: 71 SC: 213 QRS: 65 QRSD: 97 T: 66 QT: 524 QTc: 506 Interpretive Statements Sinus bradycardia supraventricular and ventricular premature complex Probable left ventricular hypertrophy Prolonged QT interval Compared to ECG 08/24/2018 08:11:06 Prolonged QT interval now present Electronically Signed On 08-25-2018 11:47:45 [employer] by Jacob Rosario [email or web address] <ELECTRONICALLY SIGNED> By: Jacob Rosario MD, [facility] 08/25/18 1147 0938 0938 Jacob Rosario MD, [facility] /EPI
== END 2018-08-25 20:55 | DRG 871 ==
LOC: M.ERS 12:48 → M.2W 14:24 → M.TBA-ER 14:24 → M.2W 18:51
PROVIDERS: Family Medicine; Internal Medicine; ADMIT Internal Medicine
PROC: 5A09357 Assistance with Respiratory Ventilation, Less than 24 Consecutive Hours, Continuous Positive Airway Pressure (ICD-10-PCS; principal; 2018-08-24)
PROC: 5A09357 Assistance with Respiratory Ventilation, Less than 24 Consecutive Hours, Continuous Positive Airway Pressure (ICD-10-PCS; 2018-08-25)
DX: A41.9 Sepsis, unspecified organism (principal); E43 Unspecified severe protein-calorie malnutrition; J96.02 Acute respiratory failure with hypercapnia; C64.9 Malignant neoplasm of unspecified kidney, except renal pelvis; N39.0 Urinary tract infection, site not specified; C25.9 Malignant neoplasm of pancreas, unspecified; E87.1 Hypo-osmolality and hyponatremia; Z68.1 Body mass index [BMI] 19.9 or less, adult; G93.40 Encephalopathy, unspecified; Z51.5 Encounter for palliative care; Z66 Do not resuscitate; I46.9 Cardiac arrest, cause unspecified; R62.7 Adult failure to thrive; D64.9 Anemia, unspecified; E78.00 Pure hypercholesterolemia, unspecified; R31.9 Hematuria, unspecified; N18.2 Chronic kidney disease, stage 2 (mild); K21.9 Gastro-esophageal reflux disease without esophagitis; F03.90 Unspecified dementia, unspecified severity, without behavioral disturbance, psychotic disturbance, mood disturbance, and anxiety; I12.9 Hypertensive chronic kidney disease with stage 1 through stage 4 chronic kidney disease, or unspecified chronic kidney disease; I48.0 Paroxysmal atrial fibrillation; Z90.5 Acquired absence of kidney; Z90.49 Acquired absence of other specified parts of digestive tract; Z79.82 Long term (current) use of aspirin; Z88.5 Allergy status to narcotic agent; Z88.2 Allergy status to sulfonamides; Z88.0 Allergy status to penicillin; Z88.8 Allergy status to other drugs, medicaments and biological substances; Z85.048 Personal history of other malignant neoplasm of rectum, rectosigmoid junction, and anus